=== PATIENT | female | born 1970 | race Caucasian/White ===

== ENCOUNTER 2022-05-22 18:45 | Emergency (ER) | payer MEDICAID, OTHER ==
[~2022-05-22] VITALS: Ht 172.7 cm; Wt 72.6 kg
--- NOTE | 2022-05-22 18:54 | NUR ---
CAME IN FOR LOWER BACK PAIN x 5 DAYS AND VERTIGO. TO ER BED 7, HOOKED TO MONITOR, CHANGED TO HOSP GOWN, WARM BLANKET PROVIDED. AWAITING MD HODGE.
--- NOTE | 2022-05-22 18:55 | NUR ---
Lindy mcdonald in EDM - 05/22/22 at 1909 by [facility] To ER bed 7, c/o lower back pain, x 5 days and vertigo, aaox4, breathing even and non labored, awaiting md woodward
[2022-05-22] MEDS ORDERED: LORAZEPAM 1 MG TABLET ONE (19:28)
[2022-05-22] MEDS ORDERED: KETOROLAC TROMETHAMINE INJ 30 MG/ML VIAL ONE (19:28)
[2022-05-22] MEDS ORDERED: ONDANSETRON 4 MG TAB.RAPDIS ONE (19:29)
[2022-05-22] MEDS ORDERED: ONDANSETRON 4 MG TAB.RAPDIS SL ONE (19:30)
[2022-05-22] MEDS ORDERED: KETOROLAC TROMETHAMINE INJ 30 MG/ML VIAL IM ONE (19:30)
[2022-05-22] MEDS ORDERED: LORAZEPAM 1 MG TABLET PO ONE (19:30)
[2022-05-22] MEDS ORDERED: ONDA4TAB11 PO (20:15)
[2022-05-22] MEDS ORDERED: LORA-259 PO (20:15)
--- NOTE | 2022-05-22 20:44 | NUR ---
Patient discharged to home in stable condition. Written and verbal after care instructions given. Patient verbalizes understanding of instruction.
[2022-05-22 21:41] VITALS: BP 110/70
[2022-05-23] MEDS ORDERED: MECL-159 PO (22:05)
[2022-05-23] MEDS ORDERED: ONDA4TAB5 PO (22:05)
[2022-05-23] MEDS ORDERED: DIAZ2TAB PO (22:05)
== END 2022-05-22 21:41 | disposition home or self-care (01) ==
LOC: ER 18:58
DX: R42 Dizziness and giddiness (principal); Z88.1 Allergy status to other antibiotic agents; Z79.899 Other long term (current) drug therapy
CPT/HCPCS: 99283; 96372; J1885; Q0162

== ENCOUNTER 2022-05-23 20:09 | Emergency (ER) | payer MEDICAID, OTHER ==
[~2022-05-23] VITALS: Ht 167.6 cm; Wt 72.6 kg
[~2022-05-23 20:09] MED LIST: LORA-259 PO; ONDA4TAB11 PO
--- NOTE | 2022-05-23 20:30 | NUR ---
BIBS C/O DIZZINESS woke up this morning feels like the room is spinning. AMBULATORY, PLACED ON BED, AAOX4. PATIENT KNOWN TO HAVE VERTIGO.
--- NOTE | 2022-05-23 20:35 | NUR ---
SEEN AND EXAMINED BY DR BOURGEOIS.
[2022-05-23] MEDS ORDERED: ONDANSETRON HCL/PF 4 MG/2 ML VIAL ONE (20:49)
--- NOTE | 2022-05-23 20:50 | NUR ---
BLOOD DRAWN AND SENT TO LAB
[2022-05-23] MEDS ORDERED: IV NS 0.9% 1,000 ML BAG IV ONE (21:00)
[2022-05-23] MEDS ORDERED: ONDANSETRON HCL/PF 4 MG/2 ML VIAL IVP ONE (21:00)
[2022-05-23 21:09] LABS: BASOPHILS # (AUTO) 0.1 K/uL (0.0-0.2); BASOPHILS % (AUTO) 0.5 % (0.0-2.0); EOSINOPHILS % (AUTO) 1.4 % (0.0-6.0); HEMATOCRIT 42 % (33-45); HEMOGLOBIN 14.4 g/dL (11.5-14.8); LYMPHOCYTES # (AUTO) 2.6 K/uL (0.8-4.8); LYMPHOCYTES % (AUTO) 25.5 % (20.0-44.0); MEAN CORPUSCULAR HGB CONC 35 g/dl (31.0-36.0); MEAN CORPUSCULAR VOLUME 89 fL (82-100); MONOCYTES # (AUTO) 0.8 K/uL (0.1-1.30); MONOCYTES % (AUTO) 7.3 % (2.0-12.0); NEUTROPHILS # (AUTO) 6.7 K/uL (1.8-8.9); NEUTROPHILS % (AUTO) 65.3 % (43.0-81.0); PLATELET COUNT (AUTO) 266 K/uL (150-450); RED BLOOD CELL COUNT(AUTO) 4.73 MIL/uL (4.0-5.2); WHITE BLOOD COUNT (AUTO) 10.3 K/uL (4.3-11.0)
--- NOTE | 2022-05-23 21:30 | NUR ---
PATIENT SIGNED A WAIVER.
--- NOTE | 2022-05-23 21:35 | NUR ---
PATIENT TAKEN TO CT VIA [facility]
[2022-05-23 21:42] LABS: CALCIUM, SERUM 9.6 mg/dL (8.5-10.1); CARBON DIOXIDE 29 mmol/L (21-32); CHLORIDE 100 mmol/L (98-107); GLUCOSE 92 mg/dL (74-106); POTASSIUM 3.9 mmol/L (3.5-5.1); SODIUM SERUM 137 mmol/L (136-145); UREA NITROGEN, BLOOD 22 mg/dL (7-18)
[2022-05-23 21:48] LABS: ALANINE AMINOTRANSFERASE 31 U/L (12-78); ALBUMIN 4.4 g/dL (3.4-5.0); ALKALINE PHOSPHATASE 97 U/L (46-116); ASPARTATE AMINOTRANSFERASE 16 U/L (15-37); BILIRUBIN,DIRECT 0.2 mg/dL (0.0-0.2); BILIRUBIN,TOTAL 0.8 mg/dL (0.2-1.0)
[2022-05-23] MEDS ORDERED: ONDA4TAB5 PO (22:05)
[2022-05-23] MEDS ORDERED: DIAZ2TAB PO (22:05)
[2022-05-23] MEDS ORDERED: MECL-159 PO (22:05)
--- NOTE | 2022-05-23 22:20 | NUR ---
IV removed. Catheter intact and site benign. Pressure and 4x4 applied to site. No bleeding noted.Patient discharged to home in stable condition. Written and verbal after care instructions given. Patient verbalizes understanding of instruction.
[2022-05-23 23:02] VITALS: BP 110/70
== END 2022-05-23 22:20 | disposition home or self-care (01) ==
LOC: ER 20:12
DX: R42 Dizziness and giddiness (principal); Z88.8 Allergy status to other drugs, medicaments and biological substances
CPT/HCPCS: 99285; 96374; 70450; 96361; 93005; 85025; 80048; 80076; 36415; 84484; J2405

== ENCOUNTER 2022-07-27 22:43 | Emergency (ER) | payer OTHER ==
[~2022-07-27] VITALS: Ht 172.7 cm; Wt 72.6 kg
[~2022-07-27 22:43] MED LIST changes: +DIAZ2TAB PO; +MECL-159 PO; +ONDA4TAB5 PO
--- NOTE | 2022-07-27 22:50 | NUR ---
BIBSELF C/O DIZZY X2 DAYS. HX OF VERTIGO AMBULATORY WITH STEADY GAIT. "MEDS NOT WORKING"
--- NOTE | 2022-07-27 23:23 | NUR ---
DR. ANA PAULA PIMENTEL AT PT'S BEDSIDE
[2022-07-27] MEDS ORDERED: IV NS 0.9% 1,000 ML BAG IV ONE (23:30)
[2022-07-27] MEDS ORDERED: MECLIZINE HCL 25 MG TABLET PO ONE (23:30)
[2022-07-27] MEDS ORDERED: MECLIZINE HCL 25 MG TABLET ONE (23:36)
--- NOTE | 2022-07-27 23:55 | NUR ---
RAC #20G S/L BLOOD COLLECTED AND SENT TO LAB
--- NOTE | 2022-07-27 23:57 | NUR ---
DEVULCANIZER LOADER AT PT'S BEDSIDE
[2022-07-28 00:20] LABS: BASOPHILS % (AUTO) 0.5 % (0.0-2.0); EOSINOPHILS % (AUTO) 1.9 % (0.0-6.0); HEMATOCRIT 44 % (33-45); LYMPHOCYTES # (AUTO) 2.4 K/uL (0.8-4.8); MEAN CORPUSCULAR HGB CONC 35 g/dl (31.0-36.0); MEAN CORPUSCULAR VOLUME 90 fL (82-100); MONOCYTES # (AUTO) 0.8 K/uL (0.1-1.30); MONOCYTES % (AUTO) 8.6 % (2.0-12.0); NEUTROPHILS # (AUTO) 5.3 K/uL (1.8-8.9); PLATELET COUNT (AUTO) 246 K/uL (150-450); RED BLOOD CELL COUNT(AUTO) 4.87 MIL/uL (4.0-5.2); WHITE BLOOD COUNT (AUTO) 8.7 K/uL (4.3-11.0)
[2022-07-28 00:46] LABS: CALCIUM, SERUM 9.9 mg/dL (8.5-10.1); CARBON DIOXIDE 26 mmol/L (21-32); CHLORIDE 100 mmol/L (98-107); CREATININE 0.9 mg/dL (0.6-1.3); GLUCOSE 95 mg/dL (74-106); POTASSIUM 4.1 mmol/L (3.5-5.1); SODIUM SERUM 134 mmol/L (136-145); UREA NITROGEN, BLOOD 17 mg/dL (7-18)
[2022-07-28 00:53] LABS: ALANINE AMINOTRANSFERASE 32 U/L (12-78); ALBUMIN 4.3 g/dL (3.4-5.0); ALKALINE PHOSPHATASE 105 U/L (46-116); ASPARTATE AMINOTRANSFERASE 22 U/L (15-37); BILIRUBIN,DIRECT 0.1 mg/dL (0.0-0.2); BILIRUBIN,TOTAL 0.7 mg/dL (0.2-1.0)
[2022-07-28] MEDS ORDERED: ACETAMINOPHEN ES 500 MG TABLET PO ONE (01:00)
[2022-07-28] MEDS ORDERED: KETOROLAC TROMETHAMINE INJ 30 MG/ML VIAL ONE (01:21)
[2022-07-28] MEDS ORDERED: KETOROLAC TROMETHAMINE INJ 30 MG/ML VIAL IV ONE (01:30)
--- NOTE | 2022-07-28 01:30 | NUR ---
[facility] CALLED FOR BLS GOING BACK HOME PER KEREN ETA - 2 HOURS
--- NOTE | 2022-07-28 02:52 | NUR ---
[facility] at pt's bedside to DC PT home. Patient discharged to home in stable condition. Written and verbal after care instructions given. Patient verbalizes understanding of instruction.
[2022-07-28 03:07] VITALS: BP 127/91
== END 2022-07-28 03:07 | disposition home or self-care (01) ==
LOC: ER 22:54
DX: R42 Dizziness and giddiness (principal); Z88.8 Allergy status to other drugs, medicaments and biological substances; Z79.899 Other long term (current) drug therapy
CPT/HCPCS: 99285; 71045; 96361; 93005; 36415; 82962; 96374; 85025; 80048; 80076; 84484; 83880; J8597; J7030; J1885

== ENCOUNTER 2022-08-23 10:24 | Emergency (ER) | payer OTHER ==
[~2022-08-23] VITALS: Ht 170.2 cm; Wt 102.1 kg
--- NOTE | 2022-08-23 10:40 | NUR ---
ASSUME PATIENT CARE, RESTING IN BED. HERE FOR DIZZINESS X 3 DAYS, PT STATES ITS NOT GOING AWAY, NO UNILATERAL WEAKNESS NOTED. EQUAL NURSE PRIVATE DUTY, AAOX 4. VSS. AWAITING MD HODGE.
--- NOTE | 2022-08-23 10:58 | NUR ---
DR SIMEON AT BEDSIDE FOR EVAL.
[2022-08-23] MEDS ORDERED: IV NS 0.9% 1,000 ML BAG IV ONE (11:00)
[2022-08-23 11:27] LABS: BASOPHILS # (AUTO) 0.1 K/uL (0.0-0.2); BASOPHILS % (AUTO) 0.8 % (0.0-2.0); EOSINOPHILS % (AUTO) 2.1 % (0.0-6.0); HEMATOCRIT 43 % (33-45); HEMOGLOBIN 14.5 g/dL (11.5-14.8); LYMPHOCYTES # (AUTO) 2.9 K/uL (0.8-4.8); LYMPHOCYTES % (AUTO) 33.1 % (20.0-44.0); MEAN CORPUSCULAR HGB CONC 34 g/dl (31.0-36.0); MEAN CORPUSCULAR VOLUME 90 fL (82-100); MONOCYTES # (AUTO) 0.7 K/uL (0.1-1.30); MONOCYTES % (AUTO) 8.1 % (2.0-12.0); NEUTROPHILS # (AUTO) 4.9 K/uL (1.8-8.9); NEUTROPHILS % (AUTO) 55.9 % (43.0-81.0); PLATELET COUNT (AUTO) 240 K/uL (150-450); RED BLOOD CELL COUNT(AUTO) 4.75 MIL/uL (4.0-5.2); WHITE BLOOD COUNT (AUTO) 8.7 K/uL (4.3-11.0)
[2022-08-23 11:38] LABS: CALCIUM, SERUM 9.9 mg/dL (8.5-10.1); CARBON DIOXIDE 28 mmol/L (21-32); CHLORIDE 100 mmol/L (98-107); CREATININE 0.9 mg/dL (0.6-1.3); GLUCOSE 93 mg/dL (74-106); POTASSIUM 4.2 mmol/L (3.5-5.1); SODIUM SERUM 135 mmol/L (136-145); UREA NITROGEN, BLOOD 29 mg/dL (7-18)
--- NOTE | 2022-08-23 11:42 | NUR ---
PT TO RADIOLOGY FOR HEAD CT SCAN VIA [facility].
[2022-08-23] MEDS ORDERED: DIAZ2TAB PO (13:29)
[2022-08-23] MEDS ORDERED: KETOROLAC TROMETHAMINE INJ 30 MG/ML VIAL IV ONE (13:30)
[2022-08-23] MEDS ORDERED: KETOROLAC TROMETHAMINE 15 MG/ML VIAL ONE (13:39)
--- NOTE | 2022-08-23 13:51 | NUR ---
IV removed. Catheter intact and site benign. Pressure and 4x4 applied to site. No bleeding noted.
--- NOTE | 2022-08-23 13:51 | NUR ---
Patient discharged to home in stable condition. Written and verbal after care instructions given. Patient verbalizes understanding of instruction.
[2022-08-23 13:52] VITALS: BP 133/89
== END 2022-08-23 13:52 | disposition home or self-care (01) ==
LOC: ER 10:24
DX: G89.29 Other chronic pain (principal); M54.9 Dorsalgia, unspecified; R42 Dizziness and giddiness; Z88.8 Allergy status to other drugs, medicaments and biological substances; Z79.899 Other long term (current) drug therapy
CPT/HCPCS: 99285; 96374; 70450; 96361; 93005; 85025; 80048; 36415; 84484; J7030; J1885

== ENCOUNTER → 2022-10-21 | Emergency (ER) | payer OTHER ==
[~2022-10-21] VITALS: Ht 172.7 cm; Wt 113.9 kg
[~2022-10-21] MED LIST changes: +KETOROLAC TROMETHAMINE INJ 30 MG/ML VIAL ONE; +KETOROLAC TROMETHAMINE INJ 60 MG/2 ML VIAL IM ONE
--- NOTE | 2022-10-21 16:15 | NUR ---
WALKED IN TO ER C/O BLIAT LOWER EXTREMITY PAIN 03/11. DENIES TRAUMA. PT STATES "IT IS ANOTHER FLARE UP FROM MY FIBROMYALGIA THAT STARTED YESTERDAY". AAOX4. BREATHING EVEN AND UNLABORED. VSS. AWAITING MD ORDERS.
--- NOTE | 2022-10-21 16:52 | NUR ---
Patient discharged to home in stable condition. Written and verbal after care instructions given. Patient verbalizes understanding of instruction.
[2022-10-21 16:53] VITALS: BP 122/78
== END ==
LOC: ER 15:58
DX: M79.7 Fibromyalgia (principal); Z88.8 Allergy status to other drugs, medicaments and biological substances; Z79.899 Other long term (current) drug therapy
CPT/HCPCS: 99283; 96372; J1885

== ENCOUNTER → 2023-02-24 | Emergency (ER) | payer MEDICAID, OTHER ==
[~2023-02-24] VITALS: Ht 172.7 cm; Wt 121.1 kg
[~2023-02-24] MED LIST changes: +IV NS 0.9% 1,000 ML IV ONE; +KETO10TA2 PO; +KETOROLAC TROMETHAMINE INJ 30 MG/ML VIAL IM ONE; -KETOROLAC TROMETHAMINE INJ 60 MG/2 ML VIAL IM ONE; +MECLIZINE HCL 25 MG TABLET ONE; +MECLIZINE HCL 25 MG TABLET PO ONE
[2023-02-24 15:55] VITALS: BP 128/97
--- NOTE | 2023-02-24 19:30 | NUR ---
Patient in bed, sleeping, no signs of ditress or discomfort. Discussed plan of care, patient verbalized agreement.
--- NOTE | 2023-02-24 19:55 | NUR ---
[facility] CALLED FOR BLS GOING BACK TO RES PER MIKA GARCIA 45 MIN
== END | disposition home or self-care (01) ==
LOC: ER 15:48
DX: M54.40 Lumbago with sciatica, unspecified side (principal); G89.29 Other chronic pain; R42 Dizziness and giddiness; M79.7 Fibromyalgia; Z79.899 Other long term (current) drug therapy; Z88.1 Allergy status to other antibiotic agents
CPT/HCPCS: 99283; 96360; 96372; J8597; J1885; J7030

== ENCOUNTER 2024-01-07 08:08 | Emergency (ER) | payer MEDICAID, OTHER ==
[~2024-01-07] VITALS: Ht 172.7 cm; Wt 82.1 kg
[~2024-01-07 08:08] MED LIST changes: -IV NS 0.9% 1,000 ML IV ONE; -KETOROLAC TROMETHAMINE INJ 30 MG/ML VIAL IM ONE; -KETOROLAC TROMETHAMINE INJ 30 MG/ML VIAL ONE; -MECLIZINE HCL 25 MG TABLET ONE; -MECLIZINE HCL 25 MG TABLET PO ONE
[2024-01-07] MEDS ORDERED: KETO10TA2 PO (08:50)
[2024-01-07] MEDS ORDERED: KETOROLAC TROMETHAMINE INJ 30 MG/ML VIAL ONE (08:56)
[2024-01-07] MEDS ORDERED: KETOROLAC TROMETHAMINE INJ 60 MG/2 ML VIAL IM ONE (09:00)
[2024-01-07 09:05] VITALS: BP 132/82; TEMP 98.2; O2SAT 100
== END 2024-01-07 09:05 | disposition home or self-care (01) ==
LOC: ER 08:18
DX: M79.7 Fibromyalgia (principal); Z79.899 Other long term (current) drug therapy; Z88.1 Allergy status to other antibiotic agents
CPT/HCPCS: 99283; J1885

== ENCOUNTER 2025-03-15 17:33 | Emergency (ER) | payer MEDICAID, OTHER ==
[~2025-03-15] VITALS: Ht 157.5 cm; Wt 79.4 kg
[2025-03-15] MEDS ORDERED: KETOROLAC TROMETHAMINE 15 MG/ML VIAL ONE (19:05)
[2025-03-15] MEDS ORDERED: dexaMETHasone SOD PHOSPHATE 4 MG/ML VIAL ONE (19:06)
[2025-03-15] MEDS ORDERED: oxyCODONE/APAP (5/325 MG) 1 UDTAB TABLET ONE (19:06)
[2025-03-15] MEDS: dexaMETHasone SOD PHOSPHATE 4 MG/ML VIAL IM ONE (19:16)
[2025-03-15] MEDS: oxyCODONE/APAP (5/325 MG) 1 UDTAB TABLET PO ONE (19:17)
[2025-03-15] MEDS: KETOROLAC TROMETHAMINE 15 MG/ML VIAL IM ONE (19:17)
[2025-03-15] MEDS ORDERED: OXYC-128 PO (21:07)
[2025-03-16 01:16] VITALS: BP 128/74; TEMP 98.1; O2SAT 98
== END 2025-03-16 01:16 | disposition home or self-care (01) ==
LOC: ER 17:38
DX: G89.29 Other chronic pain (principal); M54.50 Low back pain, unspecified; R20.2 Paresthesia of skin; R20.0 Anesthesia of skin; M79.7 Fibromyalgia; R26.2 Difficulty in walking, not elsewhere classified; Z86.69 Personal history of other diseases of the nervous system and sense organs; Z88.8 Allergy status to other drugs, medicaments and biological substances
CPT/HCPCS: 99285; 96372; J1885; J1100